=== PATIENT | male | born 1940 | race Caucasian/White ===

== ENCOUNTER 2021-02-17 15:24 | Inpatient (IN) | payer OTHER ==
[~2021-02-17] VITALS: Ht 177.8 cm; Wt 137.9 kg
[2021-02-17] VITALS (8 sets, daily range): BP systolic 119–180; BP diastolic 51–84
[2021-02-17 16:20] LABS: HEMATOCRIT 35.3 % (42.0-52.0); MEAN CELL VOLUME 89.4 fl (80.0-94.0); MEAN CORPUSCULAR HGB 29.4 pg (27.0-31.0); MEAN CORPUSCULAR HGB CONC 32.9 g/dl (33.0-37.0); MEAN PLATELET VOLUME 9.8 fl (9.6-12.3); PLATELET COUNT AUTOMATED 260 10*3/uL (130-400); RED BLOOD COUNT 3.95 10*6/uL (4.50-5.90); RED CELL DISTRI WIDTH 13.5 % (0-14.5); WHITE BLOOD COUNT 14.8 10*3/uL (4.8-10.8)
[2021-02-17] MEDS ORDERED: INDAPAMIDE1.25 MG PO (16:22)
[2021-02-17] MEDS ORDERED: ACTOS45 M1 PO (16:23)
[2021-02-17] MEDS ORDERED: METFORMIN HYD1000 MG PO (16:23)
[2021-02-17] MEDS ORDERED: Amaryl2 MG PO (16:24)
[2021-02-17] MEDS ORDERED: FLOMAX0.4 MG PO (16:24)
[2021-02-17] MEDS ORDERED: LIPITOR10 MG PO (16:24)
[2021-02-17] MEDS ORDERED: LOTREL 10-40 M1 EACH PO (16:27)
[2021-02-17] MEDS ORDERED: OZEMPIC1 MG/0.71 SQ (16:29)
[2021-02-17] MEDS ORDERED: PROSTATE HEALT1 EACH PO (16:29)
[2021-02-17] MEDS ORDERED: VITAMIN B122500 MC1 PO (16:30)
[2021-02-17 16:36] LABS: ALBUMIN 2.9 gm/dl (3.1-4.5); BUN 18 mg/dl (7-24); CHLORIDE 98 mmol/L (98-107); CREATININE 1.03 mg/dL (0.70-1.30); POTASSIUM 3.8 mmol/L (3.5-5.1); SGOT/AST 18 IU/L (3-35); SGPT/ALT 24 U/L (12-78); SODIUM 131 mmol/L (136-145); TOTAL PROTEIN 7.2 gm/dL (6.4-8.2)
[2021-02-17 16:39] LABS: ALKALINE PHOSPHATASE 59 U/L (45-117)
[2021-02-17 16:48] LABS: ATYPICAL LYMPHS 1 % (0-0); PLATELET SUFFICIENCY NORMAL (NORMAL); TOTAL CELLS COUNTED 100 #CELLS
[2021-02-17 16:49] LABS: MICROCYTOSIS SLIGHT
[2021-02-17 16:57] LABS: TROPONIN I < 0.015 ng/ml (<0.045)
[2021-02-18] VITALS: BP 123/48
[2021-02-18 06:14] LABS: BUN 14 mg/dl (7-24); CHLORIDE 98 mmol/L (98-107); SODIUM 132 mmol/L (136-145)
[2021-02-18 06:21] LABS: ACT PARTIAL THROMBO TIME 32.6 SECONDS (20.0-32.1)
[2021-02-18 06:22] LABS: HEMATOCRIT 34.8 % (42.0-52.0); MEAN CELL VOLUME 89.7 fl (80.0-94.0); MEAN CORPUSCULAR HGB 28.9 pg (27.0-31.0); MEAN CORPUSCULAR HGB CONC 32.2 g/dl (33.0-37.0); PLATELET COUNT AUTOMATED 255 10*3/uL (130-400); RED BLOOD COUNT 3.88 10*6/uL (4.50-5.90); RED CELL DISTRI WIDTH 13.4 % (0-14.5); WHITE BLOOD COUNT 12.3 10*3/uL (4.8-10.8)
[2021-02-18 06:26] LABS: ALBUMIN 2.5 gm/dl (3.1-4.5); ALKALINE PHOSPHATASE 53 U/L (45-117); CHOLESTEROL 73 mg/dL (<200); CREATININE 0.69 mg/dL (0.70-1.30); FREE T4 1.57 ng/dl (0.76-1.46); LDH 266 U/L (87-241); LDL CHOLESTEROL 33 mg/dL (9-159); SGOT/AST 19 IU/L (3-35); SGPT/ALT 21 U/L (12-78); THYROID STIM HORMONE (HS) 0.068 uIU/ml (0.358-4.75); TOTAL PROTEIN 6.8 gm/dL (6.4-8.2); TRIGLYCERIDES 55 mg/dl (<150)
[2021-02-18 07:15] LABS: ROULEAUX SLIGHT; TOTAL CELLS COUNTED 100 #CELLS
[2021-02-18 07:18] LABS: MICROCYTOSIS SLIGHT; PLATELET SUFFICIENCY NORMAL (NORMAL); SPHEROCYTES FEW
[2021-02-18 08:00] VITALS: BP 143/74
[2021-02-18 09:45] LABS: FERRITIN 340.1 ng/mL (22.0-322.0); VITAMIN D, 25-HYDROXY 38.6 ng/mL (30-100)
[2021-02-18 12:00] VITALS: BP 113/50
[2021-02-18 16:00] VITALS: BP 149/68
[2021-02-18 20:00] VITALS: BP 128/68
[2021-02-19] VITALS: BP 112/50
[2021-02-19 06:07] LABS: ALBUMIN 2.4 gm/dl (3.1-4.5); BUN 20 mg/dl (7-24); CHLORIDE 101 mmol/L (98-107); POTASSIUM 4.3 mmol/L (3.5-5.1); SODIUM 135 mmol/L (136-145)
[2021-02-19 06:12] LABS: ALKALINE PHOSPHATASE 57 U/L (45-117); CREATININE 0.76 mg/dL (0.70-1.30); SGOT/AST 20 IU/L (3-35); SGPT/ALT 25 U/L (12-78); TOTAL PROTEIN 6.4 gm/dL (6.4-8.2)
[2021-02-19 06:28] LABS: BASO % 0.1 % (0.0-1.0); LYMPH # 0.5 10*3/uL (1.3-4.4); LYMPH % 4.2 % (27.0-41.0); MEAN CELL VOLUME 89.7 fl (80.0-94.0); MEAN CORPUSCULAR HGB 28.8 pg (27.0-31.0); MEAN CORPUSCULAR HGB CONC 32.1 g/dl (33.0-37.0); MEAN PLATELET VOLUME 10.3 fl (9.6-12.3); MONO # 0.9 10*3/uL (0.1-1.0); MONO % 7.3 % (3.0-9.0); NEUT # 10.6 10*3/uL (2.3-7.9); NEUT % 87.5 % (47.0-73.0); PLATELET COUNT AUTOMATED 306 10*3/uL (130-400); RED BLOOD COUNT 3.79 10*6/uL (4.50-5.90); RED CELL DISTRI WIDTH 13.3 % (0-14.5); WHITE BLOOD COUNT 12.1 10*3/uL (4.8-10.8)
[2021-02-19 08:00] VITALS: BP 136/62
[2021-02-19 10:25] VITALS: BP 127/56
[2021-02-19 16:00] VITALS: BP 114/67
[2021-02-19 20:00] VITALS: BP 118/40
[2021-02-20] VITALS: BP 124/40
[2021-02-20 06:12] LABS: BUN 21 mg/dl (7-24); CHLORIDE 101 mmol/L (98-107); CREATININE 0.82 mg/dL (0.70-1.30); POTASSIUM 4.1 mmol/L (3.5-5.1); SODIUM 135 mmol/L (136-145)
[2021-02-20 06:13] LABS: BASO % 0.1 % (0.0-1.0); HEMATOCRIT 32.9 % (42.0-52.0); LYMPH # 0.6 10*3/uL (1.3-4.4); LYMPH % 4.9 % (27.0-41.0); MEAN CELL VOLUME 89.6 fl (80.0-94.0); MEAN CORPUSCULAR HGB 29.2 pg (27.0-31.0); MEAN CORPUSCULAR HGB CONC 32.5 g/dl (33.0-37.0); MEAN PLATELET VOLUME 9.6 fl (9.6-12.3); MONO # 0.9 10*3/uL (0.1-1.0); MONO % 6.5 % (3.0-9.0); NEUT # 11.4 10*3/uL (2.3-7.9); NEUT % 87.7 % (47.0-73.0); PLATELET COUNT AUTOMATED 335 10*3/uL (130-400); RED BLOOD COUNT 3.67 10*6/uL (4.50-5.90); RED CELL DISTRI WIDTH 13.2 % (0-14.5)
[2021-02-20 08:00] VITALS: BP 138/50
[2021-02-20 12:00] VITALS: BP 140/62
[2021-02-20 15:52] VITALS: BP 148/68
[2021-02-20 20:00] VITALS: BP 133/64
[2021-02-21] VITALS: BP 132/50
[2021-02-21 06:26] LABS: BASO % 0.1 % (0.0-1.0); EOS % 0.1 % (1.0-4.0); HEMATOCRIT 36.6 % (42.0-52.0); LYMPH # 1.1 10*3/uL (1.3-4.4); LYMPH % 7.3 % (27.0-41.0); MEAN CELL VOLUME 89.5 fl (80.0-94.0); MEAN CORPUSCULAR HGB 28.9 pg (27.0-31.0); MEAN CORPUSCULAR HGB CONC 32.2 g/dl (33.0-37.0); MEAN PLATELET VOLUME 9.6 fl (9.6-12.3); MONO % 6.3 % (3.0-9.0); NEUT % 84.4 % (47.0-73.0); RED BLOOD COUNT 4.09 10*6/uL (4.50-5.90); RED CELL DISTRI WIDTH 13.2 % (0-14.5); WHITE BLOOD COUNT 15.5 10*3/uL (4.8-10.8)
[2021-02-21 06:27] LABS: BUN 19 mg/dl (7-24); CHLORIDE 102 mmol/L (98-107); CREATININE 0.73 mg/dL (0.70-1.30); POTASSIUM 3.9 mmol/L (3.5-5.1); SODIUM 137 mmol/L (136-145)
[2021-02-21 06:32] LABS: PLATELET COUNT AUTOMATED 446 10*3/uL (130-400)
[2021-02-21 08:00] VITALS: BP 146/50
[2021-02-21 12:00] VITALS: BP 148/50
[2021-02-21 16:00] VITALS: BP 120/48
[2021-02-21 20:00] VITALS: BP 142/53
[2021-02-22] VITALS: BP 119/50
[2021-02-22 04:47] LABS: ABG BASE EXCESS 4.9 mmol/L (-2.0-2.0); ARTERIAL BLOOD GAS PH 7.498 (7.35-7.45); ARTERIAL BLOOD GAS PO2 48.5 (80-90)
[2021-02-22 06:18] LABS: HEMATOCRIT 35.8 % (42.0-52.0); MEAN CELL VOLUME 87.5 fl (80.0-94.0); MEAN CORPUSCULAR HGB 28.9 pg (27.0-31.0); MEAN PLATELET VOLUME 9.5 fl (9.6-12.3); PLATELET COUNT AUTOMATED 405 10*3/uL (130-400); RED BLOOD COUNT 4.09 10*6/uL (4.50-5.90); RED CELL DISTRI WIDTH 13.3 % (0-14.5)
[2021-02-22 06:22] LABS: BUN 17 mg/dl (7-24); CHLORIDE 100 mmol/L (98-107); CREATININE 0.66 mg/dL (0.70-1.30); POTASSIUM 3.9 mmol/L (3.5-5.1); SODIUM 134 mmol/L (136-145)
[2021-02-22 08:00] VITALS: BP 128/60
[2021-02-22 09:56] LABS: ATYPICAL LYMPHS 1 % (0-0); PLATELET SUFFICIENCY HIGH (NORMAL); TOTAL CELLS COUNTED 100 #CELLS
[2021-02-22 12:00] VITALS: BP 142/68
[2021-02-22 16:00] VITALS: BP 111/47
[2021-02-22 20:00] VITALS: BP 137/58
[2021-02-23] VITALS: BP 137/58
[2021-02-23 06:36] LABS: HEMATOCRIT 35.3 % (42.0-52.0); MEAN CELL VOLUME 89.4 fl (80.0-94.0); MEAN CORPUSCULAR HGB 28.9 pg (27.0-31.0); MEAN CORPUSCULAR HGB CONC 32.3 g/dl (33.0-37.0); MEAN PLATELET VOLUME 9.4 fl (9.6-12.3); PLATELET COUNT AUTOMATED 387 10*3/uL (130-400); RED BLOOD COUNT 3.95 10*6/uL (4.50-5.90); RED CELL DISTRI WIDTH 13.4 % (0-14.5); WHITE BLOOD COUNT 16.1 10*3/uL (4.8-10.8)
[2021-02-23 06:52] LABS: BUN 20 mg/dl (7-24); CHLORIDE 99 mmol/L (98-107); CPK 24 U/L (39-308); CREATININE 0.77 mg/dL (0.70-1.30); POTASSIUM 4.2 mmol/L (3.5-5.1); SODIUM 135 mmol/L (136-145)
[2021-02-23 07:48] LABS: PLATELET SUFFICIENCY NORMAL (NORMAL); TOTAL CELLS COUNTED 100 #CELLS
[2021-02-23 08:00] VITALS: BP 142/67
[2021-02-23 12:00] VITALS: BP 128/54
[2021-02-23 16:00] VITALS: BP 113/37
[2021-02-23 20:00] VITALS: BP 152/47
[2021-02-24] VITALS: BP 113/79
[2021-02-24 08:00] VITALS: BP 121/47
[2021-02-24 12:00] VITALS: BP 108/50
[2021-02-24 14:49] VITALS: BP 98/61
[2021-02-24 15:47] VITALS: BP 129/59
[2021-02-24 20:00] VITALS: BP 123/58
[2021-02-25] VITALS: BP 115/74
[2021-02-25 06:54] LABS: BUN 21 mg/dl (7-24); CHLORIDE 99 mmol/L (98-107); CREATININE 0.71 mg/dL (0.70-1.30); SODIUM 134 mmol/L (136-145)
[2021-02-25 08:00] VITALS: BP 136/60
[2021-02-25 12:00] VITALS: BP 109/53
[2021-02-25 15:55] VITALS: BP 94/50
[2021-02-25 20:00] VITALS: BP 140/61
[2021-02-26] VITALS: BP 147/78
[2021-02-26 07:32] LABS: BASO % 0.1 % (0.0-1.0); EOS # 0.1 10*3/uL (0.0-0.4); EOS % 0.4 % (1.0-4.0); HEMATOCRIT 35.1 % (42.0-52.0); LYMPH # 0.6 10*3/uL (1.3-4.4); LYMPH % 3.7 % (27.0-41.0); MEAN CELL VOLUME 89.1 fl (80.0-94.0); MEAN CORPUSCULAR HGB 28.9 pg (27.0-31.0); MEAN CORPUSCULAR HGB CONC 32.5 g/dl (33.0-37.0); MEAN PLATELET VOLUME 9.4 fl (9.6-12.3); MONO # 0.9 10*3/uL (0.1-1.0); MONO % 5.9 % (3.0-9.0); NEUT % 88.3 % (47.0-73.0); PLATELET COUNT AUTOMATED 389 10*3/uL (130-400); RED BLOOD COUNT 3.94 10*6/uL (4.50-5.90); RED CELL DISTRI WIDTH 13.5 % (0-14.5); WHITE BLOOD COUNT 15.9 10*3/uL (4.8-10.8)
[2021-02-26 08:00] VITALS: BP 110/64
[2021-02-26 12:00] VITALS: BP 116/51
[2021-02-26 16:00] VITALS: BP 100/40
[2021-02-26 20:00] VITALS: BP 104/85
[2021-02-27] VITALS: BP 120/45
[2021-02-27 06:14] LABS: BASO % 0.1 % (0.0-1.0); EOS # 0.1 10*3/uL (0.0-0.4); EOS % 0.4 % (1.0-4.0); HEMATOCRIT 37.3 % (42.0-52.0); LYMPH # 0.6 10*3/uL (1.3-4.4); LYMPH % 3.7 % (27.0-41.0); MEAN CELL VOLUME 88.8 fl (80.0-94.0); MEAN CORPUSCULAR HGB 28.3 pg (27.0-31.0); MEAN CORPUSCULAR HGB CONC 31.9 g/dl (33.0-37.0); MEAN PLATELET VOLUME 9.3 fl (9.6-12.3); MONO # 1.2 10*3/uL (0.1-1.0); MONO % 6.6 % (3.0-9.0); NEUT # 15.2 10*3/uL (2.3-7.9); PLATELET COUNT AUTOMATED 386 10*3/uL (130-400); RED CELL DISTRI WIDTH 13.4 % (0-14.5); WHITE BLOOD COUNT 17.3 10*3/uL (4.8-10.8)
[2021-02-27 08:00] VITALS: BP 120/54
[2021-02-27 10:34] LABS: ABG BASE EXCESS 2.6 mmol/L (-2.0-2.0); ARTERIAL BLOOD GAS PH 7.478 (7.35-7.45); ARTERIAL BLOOD GAS PO2 66.3 (80-90)
[2021-02-27 12:00] VITALS: BP 122/54
[2021-02-27 15:44] VITALS: BP 109/71
[2021-02-27 20:00] VITALS: BP 126/62
[2021-02-28] VITALS: BP 124/57
[2021-02-28 05:56] LABS: BASO % 0.2 % (0.0-1.0); EOS # 0.1 10*3/uL (0.0-0.4); EOS % 0.4 % (1.0-4.0); HEMATOCRIT 37.6 % (42.0-52.0); LYMPH # 0.6 10*3/uL (1.3-4.4); LYMPH % 3.3 % (27.0-41.0); MEAN CELL VOLUME 88.1 fl (80.0-94.0); MEAN CORPUSCULAR HGB 28.6 pg (27.0-31.0); MEAN CORPUSCULAR HGB CONC 32.4 g/dl (33.0-37.0); MEAN PLATELET VOLUME 9.4 fl (9.6-12.3); MONO # 1.1 10*3/uL (0.1-1.0); MONO % 5.8 % (3.0-9.0); NEUT # 17.1 10*3/uL (2.3-7.9); NEUT % 89.4 % (47.0-73.0); PLATELET COUNT AUTOMATED 413 10*3/uL (130-400); RED BLOOD COUNT 4.27 10*6/uL (4.50-5.90); RED CELL DISTRI WIDTH 13.5 % (0-14.5); WHITE BLOOD COUNT 19.1 10*3/uL (4.8-10.8)
[2021-02-28 08:00] VITALS: BP 121/57
[2021-02-28 12:00] VITALS: BP 102/69
[2021-02-28 16:00] VITALS: BP 94/63
[2021-02-28 20:00] VITALS: BP 92/45
[2021-03-01] VITALS: BP 129/93
[2021-03-01 05:36] LABS: CREATININE 0.92 mg/dL (0.70-1.30)
[2021-03-01 08:00] VITALS: BP 104/79
[2021-03-01 10:40] VITALS: BP 100/40
[2021-03-01 12:00] VITALS: BP 102/41
[2021-03-01 15:53] VITALS: BP 100/62
[2021-03-01 20:00] VITALS: BP 101/49
[2021-03-02 05:57] LABS: BUN 23 mg/dl (7-24); CHLORIDE 96 mmol/L (98-107); CREATININE 0.82 mg/dL (0.70-1.30); LDH 353 U/L (87-241); SGOT/AST 13 IU/L (3-35); SGPT/ALT 41 U/L (12-78); SODIUM 132 mmol/L (136-145); TOTAL PROTEIN 6.4 gm/dL (6.4-8.2)
[2021-03-02 05:58] LABS: ALKALINE PHOSPHATASE 76 U/L (45-117)
[2021-03-02 06:18] LABS: BASO % 0.1 % (0.0-1.0); EOS # 0.2 10*3/uL (0.0-0.4); EOS % 1.2 % (1.0-4.0); HEMATOCRIT 35.5 % (42.0-52.0); LYMPH # 0.6 10*3/uL (1.3-4.4); LYMPH % 4.1 % (27.0-41.0); MEAN CELL VOLUME 89.9 fl (80.0-94.0); MEAN CORPUSCULAR HGB 29.4 pg (27.0-31.0); MEAN CORPUSCULAR HGB CONC 32.7 g/dl (33.0-37.0); MEAN PLATELET VOLUME 9.8 fl (9.6-12.3); MONO # 1.2 10*3/uL (0.1-1.0); MONO % 8.7 % (3.0-9.0); NEUT # 11.7 10*3/uL (2.3-7.9); PLATELET COUNT AUTOMATED 343 10*3/uL (130-400); RED BLOOD COUNT 3.95 10*6/uL (4.50-5.90); RED CELL DISTRI WIDTH 13.6 % (0-14.5); WHITE BLOOD COUNT 13.8 10*3/uL (4.8-10.8)
[2021-03-02 08:00] VITALS: BP 97/41
[2021-03-02 12:00] VITALS: BP 105/46
[2021-03-02 20:00] VITALS: BP 97/61
[2021-03-03] VITALS: BP 95/50
[2021-03-03 06:27] LABS: BASO % 0.2 % (0.0-1.0); EOS # 0.2 10*3/uL (0.0-0.4); EOS % 1.2 % (1.0-4.0); HEMATOCRIT 36.1 % (42.0-52.0); LYMPH # 0.6 10*3/uL (1.3-4.4); LYMPH % 4.5 % (27.0-41.0); MEAN CELL VOLUME 88.9 fl (80.0-94.0); MEAN CORPUSCULAR HGB 29.1 pg (27.0-31.0); MEAN CORPUSCULAR HGB CONC 32.7 g/dl (33.0-37.0); MEAN PLATELET VOLUME 9.7 fl (9.6-12.3); MONO # 1.1 10*3/uL (0.1-1.0); MONO % 8.5 % (3.0-9.0); NEUT # 11.2 10*3/uL (2.3-7.9); NEUT % 84.7 % (47.0-73.0); PLATELET COUNT AUTOMATED 352 10*3/uL (130-400); RED BLOOD COUNT 4.06 10*6/uL (4.50-5.90); RED CELL DISTRI WIDTH 13.5 % (0-14.5); WHITE BLOOD COUNT 13.2 10*3/uL (4.8-10.8)
[2021-03-03 06:41] LABS: ALKALINE PHOSPHATASE 84 U/L (45-117); BUN 23 mg/dl (7-24); CHLORIDE 97 mmol/L (98-107); CREATININE 0.82 mg/dL (0.70-1.30); LDH 220 U/L (87-241); POTASSIUM 3.9 mmol/L (3.5-5.1); SGOT/AST 22 IU/L (3-35); SGPT/ALT 60 U/L (12-78); SODIUM 133 mmol/L (136-145); TOTAL PROTEIN 6.6 gm/dL (6.4-8.2)
[2021-03-03 08:00] VITALS: BP 94/36
[2021-03-03 12:00] VITALS: BP 102/68
[2021-03-03 16:00] VITALS: BP 115/52
[2021-03-03 20:00] VITALS: BP 98/47
[2021-03-04] VITALS: BP 106/92
[2021-03-04 05:59] LABS: ALBUMIN 1.9 gm/dl (3.1-4.5); ALKALINE PHOSPHATASE 77 U/L (45-117); BUN 16 mg/dl (7-24); CHLORIDE 100 mmol/L (98-107); CREATININE 0.73 mg/dL (0.70-1.30); LDH 196 U/L (87-241); SGOT/AST 19 IU/L (3-35); SGPT/ALT 60 U/L (12-78); SODIUM 131 mmol/L (136-145); TOTAL PROTEIN 6.5 gm/dL (6.4-8.2)
[2021-03-04 06:31] LABS: BASO % 0.3 % (0.0-1.0); EOS # 0.2 10*3/uL (0.0-0.4); HEMATOCRIT 35.9 % (42.0-52.0); LYMPH # 0.6 10*3/uL (1.3-4.4); LYMPH % 6.1 % (27.0-41.0); MEAN CELL VOLUME 91.1 fl (80.0-94.0); MEAN CORPUSCULAR HGB 29.4 pg (27.0-31.0); MEAN CORPUSCULAR HGB CONC 32.3 g/dl (33.0-37.0); MONO # 1.1 10*3/uL (0.1-1.0); MONO % 10.9 % (3.0-9.0); PLATELET COUNT AUTOMATED 307 10*3/uL (130-400); RED BLOOD COUNT 3.94 10*6/uL (4.50-5.90); RED CELL DISTRI WIDTH 13.4 % (0-14.5)
[2021-03-04 08:00] VITALS: BP 106/64
[2021-03-04 12:00] VITALS: BP 142/68
[2021-03-04 16:00] VITALS: BP 109/42
[2021-03-04 20:00] VITALS: BP 124/78
[2021-03-05] VITALS: BP 101/62
[2021-03-05 06:22] LABS: BASO % 0.3 % (0.0-1.0); EOS # 0.1 10*3/uL (0.0-0.4); EOS % 1.2 % (1.0-4.0); HEMATOCRIT 34.8 % (42.0-52.0); LYMPH # 0.5 10*3/uL (1.3-4.4); LYMPH % 4.4 % (27.0-41.0); MEAN CELL VOLUME 89.2 fl (80.0-94.0); MEAN CORPUSCULAR HGB 28.7 pg (27.0-31.0); MEAN CORPUSCULAR HGB CONC 32.2 g/dl (33.0-37.0); MEAN PLATELET VOLUME 9.7 fl (9.6-12.3); MONO # 1.2 10*3/uL (0.1-1.0); NEUT % 83.5 % (47.0-73.0); PLATELET COUNT AUTOMATED 311 10*3/uL (130-400); RED CELL DISTRI WIDTH 13.4 % (0-14.5); WHITE BLOOD COUNT 11.9 10*3/uL (4.8-10.8)
[2021-03-05 06:41] LABS: CHLORIDE 100 mmol/L (98-107); POTASSIUM 3.7 mmol/L (3.5-5.1); SODIUM 133 mmol/L (136-145)
[2021-03-05 06:50] LABS: ALBUMIN 1.8 gm/dl (3.1-4.5); ALKALINE PHOSPHATASE 85 U/L (45-117); BUN 10 mg/dl (7-24); CREATININE 0.66 mg/dL (0.70-1.30); SGOT/AST 21 IU/L (3-35); SGPT/ALT 57 U/L (12-78); TOTAL PROTEIN 6.3 gm/dL (6.4-8.2)
[2021-03-05 08:00] VITALS: BP 109/51
[2021-03-05 10:38] LABS: BF LYMPHOCYTES 2 %; BF MACROPHAGES 3 %; BF MONOCYTES 4 %; BF NEUTROPHILS 81 %
[2021-03-05 12:00] VITALS: BP 125/88
[2021-03-05 16:00] VITALS: BP 102/87
[2021-03-05 20:00] VITALS: BP 124/51
[2021-03-06] VITALS: BP 125/45
[2021-03-06 01:21] LABS: ABG BASE EXCESS -0.2 mmol/L (-2.0-2.0); ARTERIAL BLOOD GAS PH 7.461 (7.35-7.45); ARTERIAL BLOOD GAS PO2 52.6 (80-90)
[2021-03-06 06:11] LABS: ALBUMIN 1.6 gm/dl (3.1-4.5); BUN 13 mg/dl (7-24); CHLORIDE 100 mmol/L (98-107); CREATININE 0.97 mg/dL (0.70-1.30); SGOT/AST 17 IU/L (3-35); SGPT/ALT 50 U/L (12-78); SODIUM 134 mmol/L (136-145)
[2021-03-06 06:12] LABS: ALKALINE PHOSPHATASE 85 U/L (45-117)
[2021-03-06 06:42] LABS: BASO % 0.3 % (0.0-1.0); EOS # 0.2 10*3/uL (0.0-0.4); EOS % 1.3 % (1.0-4.0); HEMATOCRIT 33.8 % (42.0-52.0); LYMPH # 0.5 10*3/uL (1.3-4.4); LYMPH % 4.4 % (27.0-41.0); MEAN CELL VOLUME 90.6 fl (80.0-94.0); MEAN PLATELET VOLUME 9.8 fl (9.6-12.3); MONO # 1.3 10*3/uL (0.1-1.0); MONO % 10.6 % (3.0-9.0); NEUT # 10.3 10*3/uL (2.3-7.9); NEUT % 82.8 % (47.0-73.0); PLATELET COUNT AUTOMATED 282 10*3/uL (130-400); RED BLOOD COUNT 3.73 10*6/uL (4.50-5.90); RED CELL DISTRI WIDTH 13.7 % (0-14.5); WHITE BLOOD COUNT 12.4 10*3/uL (4.8-10.8)
[2021-03-06 08:00] VITALS: BP 109/52
[2021-03-06 12:00] VITALS: BP 125/75
[2021-03-06 14:08] LABS: ACID FAST SPEC PROCESSING Concentration (.)
[2021-03-06 16:00] VITALS: BP 120/78
[2021-03-06 20:00] VITALS: BP 113/64
[2021-03-07] VITALS (7 sets, daily range): BP systolic 96–132; BP diastolic 63–74
[2021-03-07 04:44] LABS: ABG BASE EXCESS -4.6 mmol/L (-2.0-2.0); ARTERIAL BLOOD GAS PH 7.377 (7.35-7.45)
[2021-03-07 06:17] LABS: HEMATOCRIT 35.4 % (42.0-52.0); MEAN CELL VOLUME 90.8 fl (80.0-94.0); MEAN CORPUSCULAR HGB CONC 31.9 g/dl (33.0-37.0); MEAN PLATELET VOLUME 9.8 fl (9.6-12.3); PLATELET COUNT AUTOMATED 278 10*3/uL (130-400); RED CELL DISTRI WIDTH 13.7 % (0-14.5)
[2021-03-07 06:30] LABS: ALBUMIN 1.6 gm/dl (3.1-4.5); ALKALINE PHOSPHATASE 106 U/L (45-117); BUN 17 mg/dl (7-24); CHLORIDE 99 mmol/L (98-107); CREATININE 1.08 mg/dL (0.70-1.30); POTASSIUM 4.1 mmol/L (3.5-5.1); SGOT/AST 19 IU/L (3-35); SGPT/ALT 51 U/L (12-78); SODIUM 133 mmol/L (136-145); TOTAL PROTEIN 6.5 gm/dL (6.4-8.2)
[2021-03-07 07:30] LABS: TOTAL CELLS COUNTED 100 #CELLS
[2021-03-07 07:31] LABS: BURR CELLS FEW; PLATELET SUFFICIENCY NORMAL (NORMAL); POLYCHROMASIA SLIGHT; SCHISTOCYTES FEW
[2021-03-07 08:20] LABS: ABG BASE EXCESS -3.4 mmol/L (-2.0-2.0); ARTERIAL BLOOD GAS PH 7.372 (7.35-7.45); ARTERIAL BLOOD GAS PO2 59.3 (80-90)
[2021-03-08] VITALS: BP 96/68
[2021-03-08 04:00] VITALS: BP 111/63
[2021-03-08 06:17] LABS: HEMATOCRIT 33.5 % (42.0-52.0); MEAN CELL VOLUME 89.8 fl (80.0-94.0); MEAN CORPUSCULAR HGB 28.7 pg (27.0-31.0); MEAN CORPUSCULAR HGB CONC 31.9 g/dl (33.0-37.0); MEAN PLATELET VOLUME 9.7 fl (9.6-12.3); PLATELET COUNT AUTOMATED 265 10*3/uL (130-400); RED BLOOD COUNT 3.73 10*6/uL (4.50-5.90); RED CELL DISTRI WIDTH 13.7 % (0-14.5); WHITE BLOOD COUNT 19.3 10*3/uL (4.8-10.8)
[2021-03-08 06:30] LABS: ALBUMIN 1.6 gm/dl (3.1-4.5); BUN 22 mg/dl (7-24); CHLORIDE 104 mmol/L (98-107); POTASSIUM 4.2 mmol/L (3.5-5.1); SGOT/AST 20 IU/L (3-35); SODIUM 134 mmol/L (136-145)
[2021-03-08 06:36] LABS: ALKALINE PHOSPHATASE 124 U/L (45-117); CPK 59 U/L (39-308); SGPT/ALT 43 U/L (12-78); TOTAL PROTEIN 6.1 gm/dL (6.4-8.2)
[2021-03-08 07:29] LABS: BURR CELLS FEW; PLATELET SUFFICIENCY NORMAL (NORMAL); TOTAL CELLS COUNTED 100 #CELLS
[2021-03-08 07:32] LABS: ARTERIAL BLOOD GAS PH 7.334 (7.35-7.45); ARTERIAL BLOOD GAS PO2 59.5 (80-90)
[2021-03-08 07:33] LABS: ABG BASE EXCESS -5.2 mmol/L (-2.0-2.0)
[2021-03-08 08:00] VITALS: BP 91/37
== END 2021-03-08 10:07 | DRG 871 ==
LOC: ED 15:24 → 4E 19:08 → EDHOLD 19:08 → 4E 21:35 → ICCU 03-07 05:21
PROVIDERS: Family Medicine; Internal Medicine; Internal Medicine Critical Care Medicine; Physician Assistant; Registered Nurse; Student in an Organized Health Care Education/Training Program; ADMIT Family Medicine; ATTEND Family Medicine
PROC: XW033E5 Introduction of Remdesivir Anti-infective into Peripheral Vein, Percutaneous Approach, New Technology Group 5 (ICD-10-PCS; 2021-02-17)
PROC: 5A0935A Assistance with Respiratory Ventilation, Less than 24 Consecutive Hours, High Flow/Velocity Cannula (ICD-10-PCS; 2021-02-18)
PROC: 5A0935A Assistance with Respiratory Ventilation, Less than 24 Consecutive Hours, High Flow/Velocity Cannula (ICD-10-PCS; 2021-02-20)
PROC: 5A0935A Assistance with Respiratory Ventilation, Less than 24 Consecutive Hours, High Flow/Velocity Cannula (ICD-10-PCS; 2021-02-22)
PROC: 5A09357 Assistance with Respiratory Ventilation, Less than 24 Consecutive Hours, Continuous Positive Airway Pressure (ICD-10-PCS; 2021-02-23)
PROC: 5A09357 Assistance with Respiratory Ventilation, Less than 24 Consecutive Hours, Continuous Positive Airway Pressure (ICD-10-PCS; 2021-02-24)
PROC: 5A09357 Assistance with Respiratory Ventilation, Less than 24 Consecutive Hours, Continuous Positive Airway Pressure (ICD-10-PCS; 2021-02-25)
PROC: 5A0935A Assistance with Respiratory Ventilation, Less than 24 Consecutive Hours, High Flow/Velocity Cannula (ICD-10-PCS; 2021-02-26)
PROC: 5A09357 Assistance with Respiratory Ventilation, Less than 24 Consecutive Hours, Continuous Positive Airway Pressure (ICD-10-PCS; 2021-02-27)
PROC: 5A0935A Assistance with Respiratory Ventilation, Less than 24 Consecutive Hours, High Flow/Velocity Cannula (ICD-10-PCS; 2021-02-27)
PROC: 5A0935A Assistance with Respiratory Ventilation, Less than 24 Consecutive Hours, High Flow/Velocity Cannula (ICD-10-PCS; 2021-02-28)
PROC: 5A09357 Assistance with Respiratory Ventilation, Less than 24 Consecutive Hours, Continuous Positive Airway Pressure (ICD-10-PCS; 2021-03-01)
PROC: 5A0945A Assistance with Respiratory Ventilation, 24-96 Consecutive Hours, High Flow/Velocity Cannula (ICD-10-PCS; 2021-03-01)
PROC: 0B998ZZ Drainage of Lingula Bronchus, Via Natural or Artificial Opening Endoscopic (ICD-10-PCS; 2021-03-05)
PROC: 0B928ZZ Drainage of Carina, Via Natural or Artificial Opening Endoscopic (ICD-10-PCS; 2021-03-05)
PROC: 0B948ZZ Drainage of Right Upper Lobe Bronchus, Via Natural or Artificial Opening Endoscopic (ICD-10-PCS; 2021-03-05)
PROC: 0B988ZZ Drainage of Left Upper Lobe Bronchus, Via Natural or Artificial Opening Endoscopic (ICD-10-PCS; 2021-03-05)
PROC: 0B918ZZ Drainage of Trachea, Via Natural or Artificial Opening Endoscopic (ICD-10-PCS; 2021-03-05)
PROC: 0B958ZZ Drainage of Right Middle Lobe Bronchus, Via Natural or Artificial Opening Endoscopic (ICD-10-PCS; 2021-03-05)
PROC: 0B968ZZ Drainage of Right Lower Lobe Bronchus, Via Natural or Artificial Opening Endoscopic (ICD-10-PCS; 2021-03-05)
PROC: 0B9B8ZZ Drainage of Left Lower Lobe Bronchus, Via Natural or Artificial Opening Endoscopic (ICD-10-PCS; 2021-03-05)
PROC: 0B9F7ZX Drainage of Right Lower Lung Lobe, Via Natural or Artificial Opening, Diagnostic (ICD-10-PCS; 2021-03-05)
PROC: 5A09357 Assistance with Respiratory Ventilation, Less than 24 Consecutive Hours, Continuous Positive Airway Pressure (ICD-10-PCS; 2021-03-06)
PROC: 5A09357 Assistance with Respiratory Ventilation, Less than 24 Consecutive Hours, Continuous Positive Airway Pressure (ICD-10-PCS; 2021-03-07)
PROC: 0BH18EZ Insertion of Endotracheal Airway into Trachea, Via Natural or Artificial Opening Endoscopic (ICD-10-PCS; principal; 2021-03-08)
PROC: 5A09357 Assistance with Respiratory Ventilation, Less than 24 Consecutive Hours, Continuous Positive Airway Pressure (ICD-10-PCS; 2021-03-08)
PROC: 06HY33Z Insertion of Infusion Device into Lower Vein, Percutaneous Approach (ICD-10-PCS; 2021-03-08)
PROC: B54BZZA Ultrasonography of Right Lower Extremity Veins, Guidance (ICD-10-PCS; 2021-03-08)
DX: R65.20 Severe sepsis without septic shock (principal); U07.1 COVID-19; J12.82 Pneumonia due to coronavirus disease 2019; E43 Unspecified severe protein-calorie malnutrition; J96.01 Acute respiratory failure with hypoxia; J15.8 Pneumonia due to other specified bacteria; E87.1 Hypo-osmolality and hyponatremia; B37.0 Candidal stomatitis; Z68.41 Body mass index [BMI] 40.0-44.9, adult; A41.9 Sepsis, unspecified organism; Z66 Do not resuscitate; R91.8 Other nonspecific abnormal finding of lung field; I46.9 Cardiac arrest, cause unspecified; D64.9 Anemia, unspecified; R00.1 Bradycardia, unspecified; N40.0 Benign prostatic hyperplasia without lower urinary tract symptoms; E11.65 Type 2 diabetes mellitus with hyperglycemia; E66.01 Morbid (severe) obesity due to excess calories; I10 Essential (primary) hypertension; E78.5 Hyperlipidemia, unspecified; E53.8 Deficiency of other specified B group vitamins; Z82.49 Family history of ischemic heart disease and other diseases of the circulatory system; Z51.5 Encounter for palliative care; Z79.899 Other long term (current) drug therapy